=== PATIENT | male | born 1940 | race Caucasian/White ===

== ENCOUNTER → 2025-02-09 19:14 | Outpatient (REF) | payer MEDICARE, OTHER, SELFPAY | LOC: MRI 19:14 | PROVIDERS: ATTENDING PHYSICIAN Internal Medicine Gastroenterology | DX: R10.13 Epigastric pain (principal) | CPT/HCPCS: 74183; A9575 ==

== ENCOUNTER 2025-02-18 06:23 | Day surgery (SDC) | payer MEDICARE, OTHER, SELFPAY ==
[2025-02-18 10:01] VITALS: BMI 27.3
[2025-02-18 10:06] VITALS: BMI 27.3
[2025-02-18 10:14] VITALS: BP 139/81
[2025-02-18 11:41] VITALS: BP 100/55
[2025-02-18 11:45] VITALS: BP 110/55
[2025-02-18 12:00] VITALS: BP 105/64
== END 2025-02-18 12:20 | disposition home or self-care (01) ==
LOC: SDS 06:23
PROVIDERS: ATTENDING PHYSICIAN Internal Medicine Gastroenterology
DX: K86.2 Cyst of pancreas (principal); K22.89 Other specified disease of esophagus; Z98.0 Intestinal bypass and anastomosis status
CPT/HCPCS: 43242